=== PATIENT | female | born 1970 | race Caucasian/White ===

== ENCOUNTER 2024-08-29 17:56 | Emergency (ER) | payer OTHER, SELFPAY ==
[2024-08-29 17:57] VITALS: BP 154/86
[2024-08-29 18:26] LABS: % Basophils 0.6 % (0-2); % Eosinophils 2.2 % (0-6); % Immature Granulocytes 0.3 % (0-0.5); % Lymphocytes 21.8 % (20.5-51.1); % Monocytes 6.1 % (1.7-9.3); Absolute Eosinophils 0.1 10^3/uL (0-0.7); Absolute Lymphocytes 1.4 10^3/uL (1.2-3.4); Absolute Monocytes 0.4 10^3/uL (0.1-0.6); Absolute Neutrophils 4.4 10^3/uL (1.4-6.5); Hematocrit 38.6 % (37.0-47.0); Hemoglobin 13.6 g/dL (12.0-16.0); Mean Corp Hgb Conc. 35.2 g/dL (33.0-37.0); Mean Corpuscular Hgb 32.9 pg (27.0-31.0); Mean Corpuscular Volume 93.5 fL (81.0-99.0); Mean Platelet Volume 9.6 fL (7.4-10.4); Nucleated Red Blood Cells % 0 %; Platelet Count 251 10^3/uL (130-400); Red Blood Cell Count 4.13 10^6/uL (4.20-5.40); Red Cell Dist. Width 12.4 % (11.5-14.5); White Blood Cell Count 6.4 10^3/uL (4.8-10.8)
[2024-08-29 18:35] LABS: HCG, Serum Qualitative Screen Negative
[2024-08-29 18:41] LABS: ALT (SGPT) 32 U/L (0-35); AST (SGOT) 29 U/L (14-36); Albumin 4.4 g/dl (3.5-5.0); Alkaline Phosphatase 67 U/L (38-126); Blood Urea Nitrogen 18 mg/dl (7-17); Calcium 10.2 mg/dl (8.4-10.2); Carbon Dioxide 23 mmol/L (22-30); Chloride 104 mmol/L (98-107); Glucose 105 mg/dl (70-99); Potassium 4.5 mmol/L (3.5-5.1); Sodium 136 mmol/L (135-145); Total Bilirubin 0.7 mg/dl (0.2-1.3); Total Protein 6.9 g/dl (6.3-8.2); eGFR > 60.00
--- NOTE | 2024-08-29 20:33 | ED.GENMED ---
History of Present Illness
General
Chief Complaint: Headache
Source: patient
Exam Limitations: none
Time Seen by Provider: 08/29/24 20:33
Nursing documentation reviewed up to this point in time: agreed with
History of Present Illness
History of Present Illness:
54-year-old female past medical history migraines presents to the ER for evaluation. She reports since around 1130 am this morning she has been dealing with her typical migraine. She reports this started with flashing lights which is similar to
how her migraines typically start. She took since then 2 doses of Zomig along with Benadryl and Excedrin Migraine without relief. She does complain of photophobia. She reports this is the same as her normal migraine symptoms but symptoms are not
resolving. She denies any recent fever chills.
She does complain of some soreness to her upper trapezius area from [place] but no actual injury. denies neck pain. She has needed to come to the ER once several years ago here for similar symptoms.
She is followed by neurology Dr. Amador.
Past History
Past History
ED Past Medical History: Other
ED Past Surgical History: Other (Tonsillectomy and, right ACL repair. Breast Augmentation)
Social History
Tobacco: Non-smoker
Alcohol: None
Drug: None
Personal:
Living: with family
Employment: Employed
Family History
Family History: Other
Review of Systems
Review of Systems
Allergies reviewed?: Yes
All Other Systems: ROS reviewed and negative except as documented in HPI and ROS
Constitutional: Reports no symptoms
Cardiac: Reports no symptoms
ABD/GI: Reports no symptoms
: Reports no symptoms
Musculoskeletal: Reports no symptoms
Skin: Reports no symptoms
Neurological: Reports headache; Denies dizzy, weakness or numbness
Psychiatric: Reports no symptoms
Phy Exam
General Physical Exam
General Presentation: no apparent distress
General age: appears stated age
General Skin: warm and dry
General Habitus: normal
General Mental: alert
General Hydration: appears well hydrated
Eye Exam
Eye Exam: PERRL and EOMI
Eye Exam General: PERRL: bilateral and EOM intact: bilateral
Pupil Exam: Bilateral: round and reactive
Neurological Exam
Neurological Exam: alert, oriented x3, no motor deficits and no sensory deficits
[place]oney Coma Scale
Eye Opening: Spontaneous
Verbal Response: Oriented
Motor Response: Obeys Commands
GCS Total Score: 15
Cerebellar
Cerebellar Function: normal finger to nose
Musculoskeletal Exam
Musculoskeletal Exam: full ROM
Skin Exam
Skin Exam: normal color and warm/dry
Psychiatric Exam
Psychiatric Exam: normal mood/affect
Course
Orders/Labs/Results
Orders:
Orders
08/29/24 18:00
Test Result ONCE
08/29/24 18:07
Complete Blood Count/With Diff Urgent
Comprehensive Metabolic Panel Urgent
HCG, Serum Qualitative Screen Urgent
08/29/24 20:48
Diphenhydramine [Benadryl] 25 mg IV NOW STA
Metoclopramide [Reglan] 10 mg IV NOW STA
08/29/24 20:51
0.9% Sodium Chloride 1000 ml [Nss] 1,000 ml IV BOLUS
Dexamethasone Sod Phosphate [Decadron] 10 mg IV NOW STA
Abnormal Lab Results
08/29/24
18:07
RBC 4.13 L 10^6/uL
(4.20-5.40)
MCH 32.9 H pg
(27.0-31.0)
BUN 18 H mg/dl
(7-17)
Glucose 105 H mg/dl
(70-99)
08/29/24 18:07
08/29/24 18:07
Vital Signs
Initial and Last Documented VS:
Initial Vital Signs
Temp Pulse Resp BP Pulse Ox
98.3 F 71 18 154/86 100
08/29/24 17:57 08/29/24 17:57 08/29/24 17:57 08/29/24 17:57 08/29/24 17:57
Last Documented Vital Signs
Temp Pulse Resp BP Pulse Ox
98.3 F 71 18 154/86 100
08/29/24 17:57 08/29/24 17:57 08/29/24 17:57 08/29/24 17:57 08/29/24 17:57
MDM/Problems Addressed
Differential Diagnosis Includes:
Not limited to migraine
MDM/Problems Addressed:
Patient is a 54-year-old with migraines presented with her typical migraine headache unrelieved with her Zomig and Excedrin migraine at home. Patient presents awake alert no acute distress normal neurological exam she is followed by neurology.
This is consistent with her typical migraine she denies any actual injury no neck pain. Patient has a normal neurologic exam. Patient was given fluids Reglan Benadryl and Decadron feeling much better feels hungry and wishes to go home. Discussed
close outpatient follow-up with neurology and PCP
Chronic conditions affecting care:
Migraine headaches
*Pulse Oximetry
Patient hypoxic: no
*Critical Care Note
Total Time (30-74mins, 75-104mins- exclusive of procedures): Not Applicable
Data Reviewed
Review of Other/Old Records Reveals: Other (Previous ED chart and imaging)
Source: patient
ED Attending Note
-
Portions of this chart may have been created with voice recognition software.� Occasional wrong word or��sound alike� substitutions may have occurred due to the inherent limitations of voice recognition software.
Discharge Plan
Departure
Patient Disposition: Home (Routine Discharge)
Date of Disposition: 08/29/24
Time of Disposition: 23:04
Patient with high blood pressure during this ER visit?: Yes
Condition: Fair
Covid-19: Not Applicable
Discharge Problem:
Migraine
Instructions: Migraines (DC), BLOOD PRESSURE
Prescriptions:
No Action
escitalopram oxalate 10 mg Tablet
15 mg PO HS
propranolol 80 mg Capsule,Extended Release 24hr
80 mg PO DAILY
omeprazole 20 mg Tablet,Delayed Release (Dr/Ec)
20 mg PO DAILY
Lo Loestrin Fe 1 mg-10 mcg (24)/10 mcg (2) Tablet
1 tab PO DAILY
Myrbetriq 50 mg Tablet Extended Release 24 Hr
50 mg PO DAILY
Referrals:
Josh Villa MD [Family Provider] -
Activity Restrictions/Additional Instructions:
As discussed please follow-up with your family doctor and neurologist for further evaluation of your headaches. Return if any worsening of symptoms
Interventions
Interventions:
*Risk Screen - Suicide Last Done: 08/29/24 17:57
*General Assessment Last Done: 08/29/24 17:57
*Neglect/Abuse Screening Last Done: 08/29/24 17:57
Discharge Date and Time
Print Language: BULGARIAN
[2024-08-29] MEDS: BENADRYL 25 MG IV (21:13)
[2024-08-29] MEDS: REGLAN 10 MG IV (21:15)
[2024-08-29] MEDS: DECADRON 10 MG IV (21:18)
[2024-08-29] MEDS: NSS 1000 IV (21:19)
[2024-08-29 23:27] VITALS: BP 115/76
== END 2024-08-29 23:32 | disposition home or self-care (01) ==
LOC: EMR 17:56
PROVIDERS: Emergency Medicine; EMERGENCY PHYSICIAN Emergency Medicine; FAMILY PHYSICIAN Family Medicine
DX: G43.909 Migraine, unspecified, not intractable, without status migrainosus (principal); R03.0 Elevated blood-pressure reading, without diagnosis of hypertension
CPT/HCPCS: 99284; 96374; 96375 ×2; 96361; 80053; 84703; 85025

== ENCOUNTER 2024-09-01 02:32 | Inpatient (IN) | payer OTHER, SELFPAY ==
[2024-08-31 22:51] VITALS: BP 120/75
[2024-09-01] VITALS (15 sets, daily range): BP systolic 117–137; BP diastolic 65–88; PULSE 74; O2SAT 98
--- NOTE | 2024-09-01 00:19 | ED.GENMED ---
History of Present Illness
General
Chief Complaint: Headache
Source: patient and previous hospital records (ED visit for similar complaint 2 days ago)
Exam Limitations: none
Time Seen by Provider: 09/01/24 00:09
Nursing documentation reviewed up to this point in time: agreed with
History of Present Illness
History of Present Illness:
This is a 54-year-old woman with history of migraine headaches, follows with Dr. Amador. Headaches are generally well-controlled with as needed Zomig, Excedrin Migraine. She reports having her typical migraine 1 month ago and prior to that was 3
to 4 months previously. Beginning 2 days ago however she developed her typical migraine with initially flashing lights in her eyes then generalized headache. No relief with Zomig, Excedrin Migraine, Advil. She presented to this ED on Tuesday,
August 29 and reports moderate improvement in headache after an IV dose of Reglan, Benadryl, IV fluids. Headache worsened the following day, August 30 and she placed a call to her neurologist and was placed on prednisone. She continues with headache
and is most concerned with continued vision difficulty which she describes as somewhat blurred vision, pixelated vision bilateral eyes that persists when she closes her eyes. She denies loss of vision. No nausea or vomiting, no neck pain, no fever
no chills.
Past History
Past History
ED Past Medical History: GERD and Other (Migraine headache)
ED Past Surgical History: Gynecological (Left breast lumpectomy 2007), Tonsilectomy and Other (Tonsillectomy and, right ACL repair. Breast Augmentation)
Social History
Tobacco: Non-smoker
Alcohol: None
Drug: None
Personal:
Living: with family
Employment: Employed
Family History
Family History: Other (Noncontributory)
Phy Exam
Physical Exam
Physical Exam:
GENERAL: 54-year-old woman appears her stated age, awake and alert, pleasant, appears in no acute distress. is accompanying.
EYE: pupils equal and reactive. Extraocular muscles intact. Discs are sharp bilaterally. Anicteric
NECK: Supple, nontender, no meningismus, no significant adenopathy.
ENT: posterior pharynx is clear, oral mucosa is moist. No rhinorrhea.
CARDIAC: Regular rate and rhythm. no murmur.
LUNGS: Clear breath sounds bilaterally, no acute respiratory distress, no wheezes/rales/rhonchi
ABDOMEN: Soft, nondistended, without focal tenderness, no r/g, no cvat. normoactive BS.
NEUROLOGICAL: Alert and oriented x3, no focal neuro deficits. Gait is nina and steady.
SKIN: Warm and dry, normal color, skin intact. No rash.
MUSCULOSKELETAL: No C/C/E. peripheral pulses are full and equal b/l. No palpable tenderness.
PSYCH: Normal and appropriate interaction.
Course
Orders/Labs/Results
Orders:
Orders
09/01/24 00:18
CT Head W/o Iv Contrast Urgent
Comment:
Reason For Exam: migraine x 2 days, b/l blurred vision
0.9% Sodium Chloride 1000 ml [Nss] 1,000 ml IV BOLUS
Diphenhydramine [Benadryl] 25 mg IV NOW STA
Ketorolac [Toradol] 30 mg IV NOW STA
Prochlorperazine [Compazine] 10 mg IV NOW STA
09/01/24 01:26
Electrocardiogram (*1) Urgent
Reason for Study: TIA/Stroke
EKG- Treatment ONCE
Vital Signs
Initial and Last Documented VS:
Initial Vital Signs
Temp Pulse Resp BP Pulse Ox
98.2 F 78 14 120/75 97
08/31/24 22:51 08/31/24 22:51 08/31/24 22:51 08/31/24 22:51 08/31/24 22:51
Last Documented Vital Signs
Temp Pulse Resp BP Pulse Ox
98.2 F 77 17 131/85 98
08/31/24 22:51 09/01/24 01:35 09/01/24 01:35 09/01/24 00:01 09/01/24 01:35
MDM/Problems Addressed
Differential Diagnosis Includes:
Patient presents with persistent migraine headache since August 29.
Prodrome of visual flashing lights is common with her headaches but has had persistent visual changes, somewhat pixelated vision bilaterally since onset of headache. As such we will check CT of the head.
Overall exam is benign. Discs are sharp bilaterally.
Given IV dose of Compazine, Benadryl, Toradol and IV fluids.
Unremarkable laboratory studies 2 days ago. No indication to repeat.
Chronic conditions affecting care: Neurological disorder (Migraine headache)
*Radiology
Radiology exam reviewed: radiology read reviewed (CAT scan shows small infarct in the left occipital and parietal lobes, left cerebellum and left basal ganglia. New from previous CT 3 years ago. Concerning for acute versus subacute infarcts. No
evidence of intracranial hemorrhage.)
*Pulse Oximetry
Patient hypoxic: no
*EKG
Interpreted by ED Provider?: Yes
Interpretation: normal
Comparison EKG: no changes (Unchanged from previous March 2023)
Rate: normal
Rhythm: sinus
[place]: normal axis
Interval: normal interval
QRS Pattern: normal QRS
Ischemia: no ischemia
*Assembling [employer] Interpretation
Rate: normal
Interpretation: normal
Rhythm: sinus
*Critical Care Note
Total Time (30-74mins, 75-104mins- exclusive of procedures): Not Applicable
Update Note
Update Note:
01:20
CAT scan shows several subacute/acute small infarcts in left occipital and parietal lobes, left cerebellum, left basal ganglia. All concerning for acute/subacute infarcts. No intracranial hemorrhage.
Patient resting comfortably, headache has resolved.
She continues with some vision difficulties but improved. No other focal neurodeficits and NIH stroke scale of 0.
Will admit to hospitalist service.
ED Attending Note
-
Portions of this chart may have been created with voice recognition software.� Occasional wrong word or��sound alike� substitutions may have occurred due to the inherent limitations of voice recognition software.
Discharge Plan
Departure
Patient Disposition: Admit
Date of Disposition: 09/01/24
Time of Disposition: 01:23
Admit to: Med/Surg
Admit to doctor: Sid
Presentation/result/management discussed w/ accepting MD/DO: Hospitalist
Condition: Fair
Discharge Problem:
acute/subacute cerebral infarcts
Prescriptions:
No Action
escitalopram oxalate 10 mg Tablet
15 mg PO HS
propranolol 80 mg Capsule,Extended Release 24hr
80 mg PO DAILY
omeprazole 20 mg Tablet,Delayed Release (Dr/Ec)
20 mg PO DAILY
Lo Loestrin Fe 1 mg-10 mcg (24)/10 mcg (2) Tablet
1 tab PO DAILY
vitamin E
1 tab PO DAILY
Referrals:
Jennifer Pires MD [Family Provider] -
Interventions
Interventions:
*Risk Screen - Suicide Last Done: 08/31/24 22:51
*General Assessment Last Done: 08/31/24 22:51
*Neglect/Abuse Screening Last Done: 08/31/24 22:51
*ED- Fall Risk Assessment Last Done: 09/01/24 00:03
*ED COVID-19 Vaccine History Last Done: 09/01/24 00:03
ED- Neurological Assessment Last Done: 09/01/24 00:03
Discharge Date and Time
Print Language: SAO TOMEAN
[2024-09-01] MEDS: TORADOL 30 MG IV (00:26)
[2024-09-01] MEDS: BENADRYL 25 MG IV (00:26)
[2024-09-01] MEDS: NSS 1000 IV (00:26)
[2024-09-01] MEDS: COMPAZINE 10 MG IV (00:27)
--- NOTE | 2024-09-01 02:24 | HPS.HSE ---
Family Physician
-
Family Physician: Jennifer Pires
Chief Complaint
-
Headache, Vision Changes
History of Present Illness
Patient is a 54y F with PMH significant for migraine headaches who presents to ED complaining of headache and vision changes. Patient notes having her typical migraine for the past several days. She was seen in the ED here on 08/29 with
complaints of headache and typical prodrome of 'light flashes' which are consistent with her usual migraine. She was treated with migraine cocktail at that time and discharged to home. She spoke with her Neurologist the following day (Dr. Dixon)
and was started on prednisone taper (currently 30mg daily).
Patient notes that her headache has continued without much improvement. In addition, she has noted odd visual changes which are not consistent with her usual migraine symptoms.
She describes this as missing 'pieces' in her vision. These missing areas do not seem to be consistently in a specific visual field and seem to move about.
Patient denies any numbness, weakness or ataxia in the limbs. No speech abnormality.
In the ED, her headache has improved following migraine cocktail; however, her vision changes persist.
Patient denies any prior h/o [place], CVA, etc.
Medical History
Past Medical History
Past Medical History: Reports Other
Additional Past Medical History:
Migraine Headaches
Diverticular Disease
Past Surgical History: Reports Other
Additional Past Surgical History:
Right ACL Repair
T&A
Partial Colectomy (diverticulitis)
Bunionectomy
Social History
Tobacco: Former Smoker (Quit smoking in 1994. < 10 pack years total use.)
Alcohol: Occasional
Family History
Family History: Not pertinent
Allergies / Home Medications
Allergies reflects when Allergies were last updated in [employer].
Home Medications with original date entered in [employer]
Allergy/Medication List:
Allergies
Allergy/AdvReac Type Severity Reaction Status Date / Time
fish derived Allergy Anaphylaxis Verified 09/01/24 01:42
guaifenesin [Guaifenesin] Allergy Hives Verified 09/01/24 01:42
grouper fish Allergy Anaphylaxis Uncoded 09/01/24 01:42
trivia and stevia sweetners Allergy Hives Uncoded 09/01/24 01:42
Home Medications
escitalopram oxalate 10 mg tablet 15 mg PO HS 03/23/23
norethindrone 1 mg-ethinyl estradiol 10 mcg (24)-iron 10 mcg(2) tablet (Lo Loestrin Fe) 1 tab PO DAILY 03/23/23
omeprazole 20 mg tablet,delayed release 20 mg PO DAILY 03/23/23
propranolol 80 mg capsule,extended release 24 hr 80 mg PO DAILY 03/23/23
vitamin E 1 tab PO DAILY 09/01/24
Review of Systems
-
History Source: Patient
A 12 point ROS was completed and negative except as noted: Yes
Constitutional: Denies Fever or Chills
Respiratory: Denies Cough or Trouble Breathing
Cardiac: Denies Chest Pain or Palpitations
Abdomen/GI: Denies Abdominal Pain, Nausea, Vomiting or Diarrhea
: Denies Dysuria or Frequency
Musculoskeletal: Denies Joint Pain or Edema
Neurological: Reports Headache and Other (Vision changes); Denies Dizzy
Psych: Denies Depression or Anxiety
Physical Exam
Vital Signs
Vital Signs
Temp Pulse Resp BP Pulse Ox
98.2 F 77 16 131/85 97
08/31/24 22:51 09/01/24 02:00 09/01/24 02:00 09/01/24 00:01 09/01/24 01:45
Physical Exam
General: Other (54y F in no acute distress.)
HEENT: Moist mucous membranes and PERRLA
Respiratory: Clear; No Wheezes, Rales or Rhonchi
Cardiac: S1/S2 and Regular Rhythm; No Murmur
GI: Soft, Non Tender, Non Distended and Normal Bowel Sounds
Musculoskeletal: No Clubbing, No Cyanosis and No Edema
Neuro: AO x 3 and No Motor Deficits
Impression/Plan
-
A/P: Patient is a 54y F with PMH significant for migraines who presents to ED complaining of headache and vision changes.
CVA
Visual Changes
Migraine Headache
- Admit for further evaluation and treatment.
- Typical migraine - but with atypical vision component / changes.
- CT done in the ED today shows several areas of small infarct in the left occipital, parietal, basal ganglia and cerebellum.
- No motor deficits, no ataxia / abnormal cerebellar signs.
- Patient without significant risk factors, known heart disease, hypertension, etc.
- DAPT for now.
- MRI in AM for further evaluation.
- Neurology consult for additional recommendations.
- Follow neuro exam for any new / worsening symptoms.
- Monitor for recurrent headache and treat supportively if needed.
Labs reviewed from 08/29/24 ED visit. All of which were unremarkable.
DVT Prophylaxis: SCDs
Code Status: Full
[2024-09-01] MEDS: LOW STRENGTH ASPIRIN 324 MG PO (02:29)
[2024-09-01 06:10] LABS: Hematocrit 30.6 % (37.0-47.0); Hemoglobin 10.6 g/dL (12.0-16.0); Mean Corp Hgb Conc. 34.6 g/dL (33.0-37.0); Mean Corpuscular Hgb 32.7 pg (27.0-31.0); Mean Corpuscular Volume 94.4 fL (81.0-99.0); Mean Platelet Volume 9.3 fL (7.4-10.4); Platelet Count 183 10^3/uL (130-400); Red Blood Cell Count 3.24 10^6/uL (4.20-5.40); Red Cell Dist. Width 12.8 % (11.5-14.5)
[2024-09-01 06:33] LABS: Erythrocyte Sed Rate 10 mm/hour (0-20)
[2024-09-01 06:56] LABS: Blood Urea Nitrogen 16 mg/dl (7-17); Calcium 8.8 mg/dl (8.4-10.2); Carbon Dioxide 23 mmol/L (22-30); Chloride 111 mmol/L (98-107); Glucose 99 mg/dl (70-99); HDL Cholesterol 60 mg/dl; LDL Cholesterol, Calculated 73 mg/dl; Sodium 138 mmol/L (135-145); Total Cholesterol 151 mg/dl (50-199); Triglyceride 91 mg/dl (10-149); Very Low Density Lipoprotein 18 mg/dl (0-30); eGFR > 60.00
[2024-09-01 07:23] LABS: TSH Reflex To Free T4 1.04 uIU/ml (0.47-4.68)
[2024-09-01] MEDS: PROTONIX 40 MG PO (07:56)
[2024-09-01] MEDS: PLAVIX 75 MG PO (07:56)
[2024-09-01] MEDS: INDERAL LA 80 MG PO (07:56)
--- NOTE | 2024-09-01 08:29 | CON.NEURO ---
Consultation
Order
Date of Consultation: 09/01/24
Requesting Provider: Derek Lau DO
Reason for Consult: CVA
Neurology Consultation Note.
HPI: This is a 54-year-old RH woman who presented to [facility] on August 31, 2024 with headache. According to the patient reports developing gradual in onset constant holocephalic moderate throbbing headache that started on
08/29/2024. The headache is associated with nausea, photophobia and worse with recumbency.
Ms. Trevino woke up with persistent visual difficulties, describing it as 'very difficult to see all at once.' She also experienced balance issues, reporting walking into the side of a door on the left side during the night.
The patient rates the pain as initially 9-10/10 on Tuesday night, improving slightly to 6-7/10 on and Tuesday with ibuprofen, Excedrin migraine and Zomig.
Ms. Krause took prescribed prednisone on and Tuesday with minimal improvement leading her to seek medical attention
Sheila denies fever, nasal congestion, ear pain, tinnitus, double vision, or tingling/numbness in her hands associated with this headache.
ER VS: 120/75, 78, afebrile
EKG:NSR, QTc Int : 402 ms
PDMP:none
Labs: Hemoglobin�10.6, normal glucose, LDL, TSH, WBCs, sodium, creatinine.
CT head wo contrast-multiple new hypoattenuating foci described above, which could represent acute or subacute ischemia. An alternative consideration would be vasogenic edema from underlying intraparenchymal lesions.
PMH: Migraine with aura, HTN, OLIVER, GERD, diverticulosis
PSH: Bunionectomy and 1st metatarsal phalangeal joint release, left foot. Lapiplasty tarsal-metatarsal joint arthrodesis with plate and screw fixation, left foot, partial colectomy, right ACL repair, tonsillectomy
SH: , former smoker, works as a medical billing representative
FH: Father�pneumonia, coronary artery disease.
All: Guaifenesin
ROS: Constitutional: Negative. Negative for chills, fever and unexpected weight change.
HENT: Negative for ear pain, hearing loss, tinnitus and trouble swallowing.
Eyes: Negative. Negative for photophobia, pain and visual disturbance.
Respiratory: Negative for cough, choking and shortness of breath.
Cardiovascular: Negative for chest pain, palpitations and leg swelling.
Gastrointestinal: Negative for abdominal pain and vomiting.
Endocrine: Negative. Negative for cold intolerance.
Genitourinary: Negative for dysuria, flank pain and urgency.
Musculoskeletal: Negative for back pain, gait problem, neck pain and neck stiffness.
Skin: Negative for rash.
Allergic/Immunologic: Negative. Negative for immunocompromised state.
Neurological: Positive for headache, transient visual disturbance
General: Well developed. In no acute distress.
Cardio: Regular rate and rhythm without murmur. Extremities are without cyanosis or edema.
Neuro:
Mental Status: Alert, oriented to person, place, and date. Normal attention and recall. Good fund of knowledge. Follows complex requests across the midline. Comprehension, naming, and repetition intact. No agraphia or alexia.
Cranial Nerves: Pupils are equally round and reactive to light. EOMs full. Visual araujo full to confrontation. No ptosis. No nystagmus. V1-V3 intact to light touch and pinprick bilaterally, symmetric. Face symmetric. Normal hearing AU. The
palate elevated well. SCMs and traps 5/5. Tongue midline. No dysarthria.
Motor: Normal bulk and tone. No pronator or arm drift. Strength 5/5 throughout. No clonus.
Reflexes: 2+ throughout the upper extremities and knees. 2/2 in AJs. Plantar responses flexor bilaterally.
Sensory: Normal pinprick, vibration and JPS.
Coordination: No dysmetria or tremor.
Gait: deferred
Assessment and Plan:
I. Probably secondary headache
II. History of migraine with aura
III. Abnormal CT head
- Please obtain brain MRI with and without oliver
- IV Toradol 30 mg, Reglan 10 mg, Benadryl 25 mg Q8h PRN for moderate to severe headache.
- Please check magnesium, ESR, CRP, TSH
- Case was discussed with patient's
I personally reviewed all radiology and labs along with past medical records pertinent to current medical problems. Total time spent in patient care is 60 minutes.
Thank you for allowing us to participate in the care of this patient. We will continue to follow. Please do not hesitate to contact us with any questions or concerns.
Subjective/Objective
Subjective Data
Date of Service: September 01, 2024
Objective Data
Vital Signs
Temp Pulse Resp BP Pulse Ox
36.8 C 74 18 135/87 99
09/01/24 07:26 09/01/24 07:56 09/01/24 07:26 09/01/24 07:56 09/01/24 07:26
Lab Results
09/01/24 05:45
09/01/24 05:45
Sodium 138 mmol/L (135-145) 09/01/24 05:45
Potassium 4.0 mmol/L (3.5-5.1) 09/01/24 05:45
BUN 16 mg/dl (7-17) 09/01/24 05:45
Glucose 99 mg/dl (70-99) 09/01/24 05:45
Calcium 8.8 mg/dl (8.4-10.2) 09/01/24 05:45
LDL Cholesterol, Calc 73 mg/dl 09/01/24 05:45
Patient Allergies
fish derived Allergy (Verified 09/01/24 01:42)
Anaphylaxis
guaifenesin [Guaifenesin] Allergy (Verified 09/01/24 01:42)
Hives
grouper fish Allergy (Uncoded 09/01/24 01:42)
Anaphylaxis
trivia and stevia sweetners Allergy (Uncoded 09/01/24 01:42)
Hives
Medications
-
Active Medications
Generic Name Dose Route Start Last Admin
Trade Name Freq PRN Reason Stop Dose Admin
Acetaminophen 650 mg 09/01/24 03:26
Acetaminophen 325 Mg Tablet PO 09/29/24 03:25
Q4HPRN PRN
Mild Pain / Temp > 101
Aspirin 81 mg 09/02/24 08:00
Aspirin 81 Mg Chewable Tablet PO 09/30/24 07:59
DAILY ALEJANDRO
Clopidogrel Bisulfate 75 mg 09/01/24 08:00 09/01/24 07:56
Clopidogrel 75 Mg Tablet PO 09/29/24 07:59 75 mg
DAILY ALEJANDRO Administration
Escitalopram Oxalate 15 mg 09/01/24 22:00
Escitalopram 10 Mg Tablet PO 09/29/24 21:59
HS ALEJANDRO
Ketorolac Tromethamine 10 mg 09/01/24 03:26
Ketorolac 15 Mg/Ml Injection IV 09/06/24 03:25
Q6HPRN PRN
Headache
Pantoprazole Sodium 40 mg 09/01/24 08:00 09/01/24 07:56
Pantoprazole 40 Mg Delayed Release Tablet PO 09/29/24 07:59 40 mg
DAILY ALEJANDRO Administration
Prochlorperazine Edisylate 10 mg 09/01/24 03:26
Prochlorperazine 10 Mg/2 Ml Vial IV 09/29/24 03:25
Q6HPRN PRN
Headache / Nausea
Propranolol HCl 80 mg 09/01/24 08:00 09/01/24 07:56
Propranolol Extended Release 80 Mg Capsule (24hr) PO 09/29/24 07:59 80 mg
DAILY ALEJANDRO Administration
Sodium Chloride 0 flush 09/01/24 04:00
Sodium Chloride 0.9% (Flush) Syringe IV 09/29/24 03:59
PER PROTOCOL ALEJANDRO
Home Medications
�Medication �Instructions �Recorded
escitalopram oxalate 10 mg tablet 15 mg PO HS 03/23/23
norethindrone 1 mg-ethinyl 1 tab PO DAILY 03/23/23
estradiol 10 mcg (24)-iron 10
mcg(2) tablet (Lo Loestrin Fe)
omeprazole 20 mg tablet,delayed 20 mg PO DAILY 03/23/23
release
propranolol 80 mg capsule,extended 80 mg PO DAILY 03/23/23
release 24 hr
vitamin E 1 tab PO DAILY 09/01/24
Vital Signs and Labs
-
Vital Signs and Labs:
Vital Signs
Temp Pulse Resp BP Pulse Ox
36.8 C 74 18 135/87 99
09/01/24 07:26 09/01/24 07:56 09/01/24 07:26 09/01/24 07:56 09/01/24 07:26
Lab Results
09/01/24 05:45
09/01/24 05:45
Sodium 138 mmol/L (135-145) 09/01/24 05:45
Potassium 4.0 mmol/L (3.5-5.1) 09/01/24 05:45
BUN 16 mg/dl (7-17) 09/01/24 05:45
Glucose 99 mg/dl (70-99) 09/01/24 05:45
Calcium 8.8 mg/dl (8.4-10.2) 09/01/24 05:45
LDL Cholesterol, Calc 73 mg/dl 09/01/24 05:45
Medications
-
Medications:
Generic Name Dose Route Start Last Admin
Trade Name Freq PRN Reason Stop Dose Admin
Acetaminophen 650 mg 09/01/24 03:26
Acetaminophen 325 Mg Tablet PO 09/29/24 03:25
Q4HPRN PRN
Mild Pain / Temp > 101
Aspirin 81 mg 09/02/24 08:00
Aspirin 81 Mg Chewable Tablet PO 09/30/24 07:59
DAILY ALEJANDRO
Clopidogrel Bisulfate 75 mg 09/01/24 08:00 09/01/24 07:56
Clopidogrel 75 Mg Tablet PO 09/29/24 07:59 75 mg
DAILY ALEJANDRO Administration
Escitalopram Oxalate 15 mg 09/01/24 22:00
Escitalopram 10 Mg Tablet PO 09/29/24 21:59
HS ALEJANDRO
Ketorolac Tromethamine 10 mg 09/01/24 03:26
Ketorolac 15 Mg/Ml Injection IV 09/06/24 03:25
Q6HPRN PRN
Headache
Pantoprazole Sodium 40 mg 09/01/24 08:00 09/01/24 07:56
Pantoprazole 40 Mg Delayed Release Tablet PO 09/29/24 07:59 40 mg
DAILY ALEJANDRO Administration
Prochlorperazine Edisylate 10 mg 09/01/24 03:26
Prochlorperazine 10 Mg/2 Ml Vial IV 09/29/24 03:25
Q6HPRN PRN
Headache / Nausea
Propranolol HCl 80 mg 09/01/24 08:00 09/01/24 07:56
Propranolol Extended Release 80 Mg Capsule (24hr) PO 09/29/24 07:59 80 mg
DAILY ALEJANDRO Administration
Sodium Chloride 0 flush 09/01/24 04:00
Sodium Chloride 0.9% (Flush) Syringe IV 09/29/24 03:59
PER PROTOCOL ALEJANDRO
Home Medications
-
Home Medications
escitalopram oxalate 10 mg tablet 15 mg PO HS 03/23/23
norethindrone 1 mg-ethinyl estradiol 10 mcg (24)-iron 10 mcg(2) tablet (Lo Loestrin Fe) 1 tab PO DAILY 03/23/23
omeprazole 20 mg tablet,delayed release 20 mg PO DAILY 03/23/23
propranolol 80 mg capsule,extended release 24 hr 80 mg PO DAILY 03/23/23
vitamin E 1 tab PO DAILY 09/01/24
--- NOTE | 2024-09-01 08:31 | W.PN.HOSP.TC ---
Today's Communication/Plan
-
MRI today
Assessment / Plan
Assessment / Plan
Ms. Sheila Trevino is a 54 yo woman with hx migraines who presents to the ER complaining of headache and vision changes.
HEAD CT
IMPRESSION:
Multiple new hypoattenuating foci described above, which could represent acute or subacute ischemia. An alternative consideration would be vasogenic edema from underlying intraparenchymal lesions. A follow-up brain MRI without and with intravenous
contrast may be helpful for further characterization.
CVA
Visual Changes
Migraine Headache
- Admit for further evaluation and treatment.
- Typical migraine - but with atypical vision component / changes.
- CT done in the ED today shows several areas of small infarct in the left occipital, parietal, basal ganglia and cerebellum.
- No motor deficits, no ataxia / abnormal cerebellar signs.
- Patient without significant risk factors, known heart disease, hypertension, etc.
- DAPT for now.
- MRI in AM for further evaluation.
- Neurology consult for additional recommendations.
- Follow neuro exam for any new / worsening symptoms.
- Monitor for recurrent headache and treat supportively if needed.
Labs reviewed from 08/29/24 ED visit. All of which were unremarkable.
DVT Prophylaxis: SCDs
Code Status: Full
Anticipated Discharge: 24 - 48 hours
Subjective/Interval History
-
Date of Service: September 01, 2024
pain resolved but vision abnormality persists
Objective Data
-
Labs:
Laboratory Results
09/01/24
05:45
WBC 6.0
Hgb 10.6 L D
Hct 30.6 L
Plt Count 183 D
Sodium 138
Potassium 4.0
Chloride 111 H
Carbon Dioxide 23
BUN 16
Creatinine 0.6
Glucose 99
Calcium 8.8
Vital Signs:
Vital Signs
Temp Pulse Resp BP Pulse Ox
98.3 F 74 18 135/87 99
09/01/24 07:26 09/01/24 07:56 09/01/24 07:26 09/01/24 07:56 09/01/24 07:26
Review of Systems
-
History Source: Patient
All other systems: Reviewed and negative
Physical Exam
-
General: No Apparent Distress
HEENT: PERRLA
Respiratory: Clear to Auscultation; Negative Wheezes
Cardiac: Regular Rhythm and S1/S2
GI: Soft and Nontender
Musculoskeletal: No Edema
Skin: Warm and Dry; Negative Rash
Neuro: AO x 3
Psych: Calm
Data Reviewed
-
Diagnostic Radiology: Report Reviewed by me
Labs: Labs Reviewed by me
[2024-09-01 09:03] LABS: Glycohemoglobin (HgbA1c) 4.9 % (4.0-5.6)
[2024-09-01 09:11] LABS: Magnesium 1.9 mg/dl (1.6-2.3)
[2024-09-01 14:26] LABS: Amphetamines Negative (Negative); Barbiturates Negative (Negative); Benzodiazepines Negative (Negative); Buprenorphine Negative (Negative); Cocaine Negative (Negative); Marijuana Negative (Negative); Methadone Negative (Negative); Methamphetamines Negative (Negative); Opiates Negative (Negative); Phencyclidine Negative (Negative); Tricyclic Antidepressants Negative (Negative)
--- NOTE | 2024-09-01 15:00 | PTOTSP ---
Speech Therapy Evaluation:
Completed bedside swallow evaluation - Oral phase WFL with adequate acceptance, mastication, bolus formation, oral transfers, and clearance. No overt s/sx of aspiration or signs concerning for pharyngeal dysphagia. WBC WNL. Pt on room air. Pt passed
3oz swallow screen.
Speech/Language/Cognition appears WFL upon clinical observation, however not formally assessed.
Recommend:
1. Regular solids and thin liquids
2. Medications as tolerated
3. General aspiration precautions
4. WINE MAKER to s/o - please reconsult if indicated
[2024-09-01 18:05] LABS: HIV Combo Negative (Negative)
[2024-09-01] MEDS: LEXAPRO 15 MG PO (21:11)
[2024-09-02] VITALS (8 sets, daily range): BP systolic 109–153; BP diastolic 66–99; BMI 21.8
[2024-09-02] MEDS: TORADOL 10 MG IV ×2 (05:38→16:31)
[2024-09-02 05:43] LABS: Hematocrit 32.7 % (37.0-47.0); Hemoglobin 11.7 g/dL (12.0-16.0); Mean Corp Hgb Conc. 35.8 g/dL (33.0-37.0); Mean Corpuscular Hgb 33.4 pg (27.0-31.0); Mean Corpuscular Volume 93.4 fL (81.0-99.0); Mean Platelet Volume 9.5 fL (7.4-10.4); Platelet Count 185 10^3/uL (130-400); Red Cell Dist. Width 12.6 % (11.5-14.5); White Blood Cell Count 5.5 10^3/uL (4.8-10.8)
--- NOTE | 2024-09-02 05:48 | PTCARENOTE ---
Pt reported a frontal headache,aching not migraine pain,10/23,Neuro eval unchanged,pt medicated with Toradol 10 mg iv,with some relief.VS stable SR sole stainer.Close observation ongoing.
[2024-09-02 06:06] LABS: Blood Urea Nitrogen 16 mg/dl (7-17); Calcium 9.5 mg/dl (8.4-10.2); Carbon Dioxide 27 mmol/L (22-30); Chloride 103 mmol/L (98-107); Glucose 96 mg/dl (70-99); Potassium 4.2 mmol/L (3.5-5.1); Sodium 138 mmol/L (135-145); eGFR > 60.00
[2024-09-02] MEDS: LOW STRENGTH ASPIRIN 81 MG PO (07:58)
[2024-09-02] MEDS: PROTONIX 40 MG PO (07:58)
[2024-09-02] MEDS: PLAVIX 75 MG PO (07:58)
[2024-09-02] MEDS: INDERAL LA 80 MG PO (07:58)
[2024-09-02] MEDS: TYLENOL 650 MG PO ×2 (08:15→20:28)
[2024-09-02] MEDS: COMPAZINE 10 MG IV ×2 (08:16→20:31)
--- NOTE | 2024-09-02 08:28 | W.PN.HOSP.TC ---
Addendum entered and electronically signed by Nelida Calderon MD 09/02/24 14:02:
discussed with patient stopped hormone replacement therapy
Addendum entered and electronically signed by Nelida Calderon MD 09/02/24 08:52:
*TSH WNL
Original Note:
Today's Communication/Plan
-
asa/plavix
TTE
NPO after MN for MAKAYLA/Linq
thyroid US
Assessment / Plan
Assessment / Plan
Ms. Sheila Trevino is a 54 yo woman with hx migraines who presents to the ER complaining of headache and vision changes.
HEAD CT
IMPRESSION:
Multiple new hypoattenuating foci described above, which could represent acute or subacute ischemia. An alternative consideration would be vasogenic edema from underlying intraparenchymal lesions. A follow-up brain MRI without and with intravenous
contrast may be helpful for further characterization.
Brain MRI
IMPRESSION:
Multiple scattered acute infarcts located in the bilateral parietal and occipital lobes, the left cerebellum, and the left thalamus.
CTA Head/Neck
IMPRESSION:
No acute intracranial hemorrhage.
The cervical carotid and vertebral arteries are patent without significant plaque, stenosis, occlusion, or dissection.
The left intradural vertebral artery is dominant. The right intradural vertebral artery demonstrates developmental diminished caliber beyond the posterior inferior cerebellar artery origin. Both posterior inferior cerebellar arteries appear patent.
No ak chin of Spivey region aneurysm or stenosis.
No cerebral artery significant plaque, stenosis, thrombus, or occlusion.
Thyroid nodularity, with right lobe enhancing heterogeneous nodule measuring up to 1.5 cm. Recommend nonemergent follow-up thyroid ultrasound.
CVA
Visual Changes
- CT done in the ED today shows several areas of small infarct in the left occipital, parietal, basal ganglia and cerebellum.
- s/p MRI confirming multiple scattered bilateral acute infarcts
- monitor on telemetry
- continue aspirin/plavix
- appreciate Neurology
- TTE with bubble study tomorrow; Cardiology consult for TTE and Linq; NPO after MN
Thyroid nodule on CT
-thyroid US ordered today
Labs reviewed from 08/29/24 ED visit. All of which were unremarkable.
DVT Prophylaxis: SCDs
Code Status: Full
Anticipated Discharge: 24 - 48 hours
Subjective/Interval History
-
Date of Service: September 02, 2024
headache this morning, improved with compazine
no weakness/numbness/tingling
Objective Data
-
Labs:
Laboratory Results
09/02/24
05:25
WBC 5.5
Hgb 11.7 L
Hct 32.7 L
Plt Count 185
Sodium 138
Potassium 4.2
Chloride 103
Carbon Dioxide 27
BUN 16
Creatinine 0.6
Glucose 96
Calcium 9.5
Vital Signs:
Vital Signs
Temp Pulse Resp BP Pulse Ox
98.4 F 71 17 129/73 98
09/02/24 07:46 09/02/24 07:58 09/02/24 07:46 09/02/24 07:58 09/02/24 07:46
I&O
09/01/24 09/02/24 09/03/24
06:59 06:59 06:59
Intake Total 480 / 480
Balance 480 / 480
Review of Systems
-
History Source: Patient
All other systems: Reviewed and negative
Physical Exam
-
General: No Apparent Distress
HEENT: PERRLA
Respiratory: Clear to Auscultation; Negative Wheezes
Cardiac: Regular Rhythm and S1/S2
GI: Soft and Nontender
Musculoskeletal: No Edema
Skin: Warm and Dry; Negative Rash
Neuro: AO x 3
Psych: Calm
Data Reviewed
-
Diagnostic Radiology: Report Reviewed by me
Labs: Labs Reviewed by me
--- NOTE | 2024-09-02 08:32 | CON.CAR ---
Consultation
Consultation Request
Date/Time Consultation Requested: September 02, 2024
Date/Time Consultation Performed: September 02, 2024
Requesting Provider: Hospitalist
Performing Provider: Christy
Reason for Consultation: Cryptogenic stroke
Medical History
-
Chief Complaint: Visual findings and headache
History of Present Illness:
54-year-old female who presents with acute onset visual changes and headache. She does carry history of chronic migraine and complicated migraine with visual aura. She is noted to have acute embolic infarcts on MRI of the brain although thankfully
she has noticed an improvement in her headache symptoms and overall neurologic picture except for difficulty with vision. No chest pain or palpitations. She does have a mother with a history of atrial fibrillation.
ECG demonstrates sinus rhythm and there is been no arrhythmia noted on telemetry.
Past Medical History
Past Medical History: HTN and Other (Chronic migraine)
Social History
Tobacco: Non-Smoker
Alcohol: None
Drug: None
Personal:
Living: With Family
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
Family History
Family History: Reviewed & Not Pertinent and Other (Mother with a history of atrial fibrillation)
Allergies / Home Medications
Allergy/AdvReac Type Severity Reaction Status Date / Time
fish derived Allergy Anaphylaxis Verified 09/01/24 01:42
guaifenesin [Guaifenesin] Allergy Hives Verified 09/01/24 01:42
grouper fish Allergy Anaphylaxis Uncoded 09/01/24 01:42
trivia and stevia sweetners Allergy Hives Uncoded 09/01/24 01:42
�Medication �Instructions �Recorded �Confirmed �Type
escitalopram oxalate 10 mg tablet 15 mg PO HS Mental Health/Anxiety 03/23/23 09/01/24 History
norethindrone 1 mg-ethinyl 1 tab PO DAILY HORMONE 03/23/23 09/01/24 History
estradiol 10 mcg (24)-iron 10
mcg(2) tablet (Lo Loestrin Fe)
omeprazole 20 mg tablet,delayed 20 mg PO DAILY GERD 03/23/23 09/01/24 History
release
propranolol 80 mg capsule,extended 80 mg PO DAILY Blood Pressure 03/23/23 09/01/24 History
release 24 hr
vitamin E 1 tab PO DAILY Supplement 09/01/24 09/01/24 History
Review of Systems
-
All other systems: Negative unless noted
Physical Exam
Vital Signs
Temp Pulse Resp BP Pulse Ox
98.4 F 71 17 129/73 98
09/02/24 07:46 09/02/24 07:58 09/02/24 07:46 09/02/24 07:58 09/02/24 07:46
Lab Results
09/02/24 05:25
09/02/24 05:25
Physical Exam
General: Well Developed and Well Nourished
HEENT: Normocephalic and Anicteric
Respiratory: Clear
Cardiac: S1/S2 and Regular Rhythm
Breast: Deferred by me
GI: Soft, Non Tender and Non Distended
Rectal: Deferred by Provider
Musculoskeletal: No Clubbing and No Cyanosis
Skin: Warm and Dry
Neuro: Awake, Alert and Oriented
Hematologic/Lymphatic: No Lymphadenopathy
Psych: Calm
Impression / Plan
-
Impression:
Cryptogenic stroke
Visual findings as noted
History of chronic migraine
Hypertension
History of anxiety disorder
History of GERD
Recommendations:
Agree with neurologic workup and treatment as you are.
It is likely she will need a formal neuro-ophthalmology evaluation if she has continued visual findings
Deferred neurology
Regarding her cryptogenic stroke and multiple embolic appearing infarcts as noted on MRI we would recommend a transesophageal echo and a ILR implant which I described both in detail and we will keep her n.p.o. after midnight and my colleagues can
perform this on Tuesday.
I took time to answer all questions we be happy to follow-up with her in the office
Data Reviewed
-
EKG: Tracing Personally Visualized and interpreted
Radiology: Report Reviewed by me
MRI: Report Reviewed by me
Labs: Labs Reviewed by me
Old Records: Requested
--- NOTE | 2024-09-02 10:30 | PTCARENOTE ---
Received pt from ED, VSS, monitor showing NSR. NIH '0' at present. Verbalizes relief of headache, previously medicated in ED. Vision remains 'fuzzy', denies field cut. Oriented to room, spouse at bedside, call buck in reach.
--- NOTE | 2024-09-02 14:11 | W.PN.NEURO.1 ---
Addendum entered and electronically signed by Anai Ramirez MD 09/04/24 07:39:
IV. Cytotoxic edema
Original Note:
Today's Communication / Plan
-
.
Subjective/Objective
Subjective Data
Date of Service: September 02, 2024
Neurology follow-up note
The patient reports no change in vision, strength and sensation.
She has been normotensive.
She MAKAYLA�pending
PMH: Migraine with aura, HTN, OLIVER, GERD, diverticulosis
PSH: Bunionectomy and 1st metatarsal phalangeal joint release, left foot. Lapiplasty tarsal-metatarsal joint arthrodesis with plate and screw fixation, left foot, partial colectomy, right ACL repair, tonsillectomy
SH: , former smoker, works as a in store marketing representative
FH: Father�pneumonia, coronary artery disease.
All: Guaifenesin
ROS: Constitutional: Negative. Negative for chills, fever and unexpected weight change.
HENT: Negative for ear pain, hearing loss, tinnitus and trouble swallowing.
Eyes: Negative. Negative for photophobia, pain and visual disturbance.
Respiratory: Negative for cough, choking and shortness of breath.
Cardiovascular: Negative for chest pain, palpitations and leg swelling.
Gastrointestinal: Negative for abdominal pain and vomiting.
Endocrine: Negative. Negative for cold intolerance.
Genitourinary: Negative for dysuria, flank pain and urgency.
Musculoskeletal: Negative for back pain, gait problem, neck pain and neck stiffness.
Skin: Negative for rash.
Allergic/Immunologic: Negative. Negative for immunocompromised state.
Neurological: Positive for headache, transient visual disturbance
General: Well developed. In no acute distress.
Cardio: Regular rate and rhythm without murmur. Extremities are without cyanosis or edema.
Neuro:
Mental Status: Alert, oriented to person, place, and date. Normal attention and recall. Good fund of knowledge. Follows complex requests across the midline. Comprehension, naming, and repetition intact.
Cranial Nerves: Pupils are equally round and reactive to light. EOMs full. Visual araujo full to confrontation. No ptosis. No nystagmus. V1-V3 intact to light touch and pinprick bilaterally, symmetric. Face symmetric. Normal hearing AU. The
palate elevated well. SCMs and traps 5/5. Tongue midline. No dysarthria.
Motor: Normal bulk and tone. No pronator or arm drift. Strength 5/5 throughout. No clonus.
Coordination: No dysmetria or tremor.
Gait: deferred
Assessment and Plan:
I. Acute hemispheric posterior circulation strokes. Likely etiology�embolic
II. History of migraine with aura
III. Abnormal CT head
-Continue neurochecks
-Continue DAPT
-MAKAYLA if TTE/ILR if TTE is unremarkable
-Outpatient ophthalmology consult
-Thrombophilia blood work
-Case was discussed with patient's
I personally reviewed all radiology and labs along with past medical records pertinent to current medical problems. Total time spent in patient care is 35 minutes.
Thank you for allowing us to participate in the care of this patient. We will continue to follow. Please do not hesitate to contact us with any questions or concerns.
Objective Data
Vital Signs
Temp Pulse Resp BP Pulse Ox
36.4 C 76 18 109/70 98
09/02/24 10:20 09/02/24 11:00 09/02/24 10:20 09/02/24 10:17 09/02/24 10:20
Lab Results
09/02/24 05:25
09/02/24 05:25
Sodium 138 mmol/L (135-145) 09/02/24 05:25
Potassium 4.2 mmol/L (3.5-5.1) 09/02/24 05:25
BUN 16 mg/dl (7-17) 09/02/24 05:25
Glucose 96 mg/dl (70-99) 09/02/24 05:25
Calcium 9.5 mg/dl (8.4-10.2) 09/02/24 05:25
LDL Cholesterol, Calc 73 mg/dl 09/01/24 05:45
Ur Buprenorphine Negative (Negative) 09/01/24 13:55
Patient Allergies
fish derived Allergy (Verified 09/01/24 01:42)
Anaphylaxis
guaifenesin [Guaifenesin] Allergy (Verified 09/01/24 01:42)
Hives
grouper fish Allergy (Uncoded 09/01/24 01:42)
Anaphylaxis
trivia and stevia sweetners Allergy (Uncoded 09/01/24 01:42)
Hives
Vital Signs and Labs
-
Vital Signs and Labs:
Vital Signs
Temp Pulse Resp BP Pulse Ox
36.4 C 76 18 109/70 98
09/02/24 10:20 09/02/24 11:00 09/02/24 10:20 09/02/24 10:17 09/02/24 10:20
Lab Results
09/02/24 05:25
09/02/24 05:25
Sodium 138 mmol/L (135-145) 09/02/24 05:25
Potassium 4.2 mmol/L (3.5-5.1) 09/02/24 05:25
BUN 16 mg/dl (7-17) 09/02/24 05:25
Glucose 96 mg/dl (70-99) 09/02/24 05:25
Calcium 9.5 mg/dl (8.4-10.2) 09/02/24 05:25
LDL Cholesterol, Calc 73 mg/dl 09/01/24 05:45
Ur Buprenorphine Negative (Negative) 09/01/24 13:55
Medications
-
Medications:
Generic Name Dose Route Start Last Admin
Trade Name Freq PRN Reason Stop Dose Admin
Acetaminophen 650 mg 09/01/24 03:26 09/02/24 08:15
Acetaminophen 325 Mg Tablet PO 09/29/24 03:25 650 mg
Q4HPRN PRN Administration
Mild Pain / Temp > 101
Aspirin 81 mg 09/02/24 08:00 09/02/24 07:58
Aspirin 81 Mg Chewable Tablet PO 09/30/24 07:59 81 mg
DAILY ALEJANDRO Administration
Clopidogrel Bisulfate 75 mg 09/01/24 08:00 09/02/24 07:58
Clopidogrel 75 Mg Tablet PO 09/29/24 07:59 75 mg
DAILY ALEJANDRO Administration
Escitalopram Oxalate 15 mg 09/01/24 22:00 09/01/24 21:11
Escitalopram 10 Mg Tablet PO 09/29/24 21:59 15 mg
HS ALEJANDRO Administration
Ketorolac Tromethamine 10 mg 09/01/24 03:26 09/02/24 05:38
Ketorolac 15 Mg/Ml Injection IV 09/06/24 03:25 10 mg
Q6HPRN PRN Administration
Headache
Pantoprazole Sodium 40 mg 09/01/24 08:00 09/02/24 07:58
Pantoprazole 40 Mg Delayed Release Tablet PO 09/29/24 07:59 40 mg
DAILY ALEJANDRO Administration
Prochlorperazine Edisylate 10 mg 09/01/24 03:26 09/02/24 08:16
Prochlorperazine 10 Mg/2 Ml Vial IV 09/29/24 03:25 10 mg
Q6HPRN PRN Administration
Headache / Nausea
Propranolol HCl 80 mg 09/01/24 08:00 09/02/24 07:58
Propranolol Extended Release 80 Mg Capsule (24hr) PO 09/29/24 07:59 80 mg
DAILY ALEJANDRO Administration
Sodium Chloride 0 flush 09/01/24 04:00
Sodium Chloride 0.9% (Flush) Syringe IV 09/29/24 03:59
PER PROTOCOL ALEJANDRO
Home Medications
-
Home Medications
escitalopram oxalate 10 mg tablet 15 mg PO HS Mental Health/Anxiety 03/23/23
norethindrone 1 mg-ethinyl estradiol 10 mcg (24)-iron 10 mcg(2) tablet (Lo Loestrin Fe) 1 tab PO DAILY HORMONE 03/23/23
omeprazole 20 mg tablet,delayed release 20 mg PO DAILY GERD 03/23/23
propranolol 80 mg capsule,extended release 24 hr 80 mg PO DAILY Blood Pressure 03/23/23
vitamin E 1 tab PO DAILY Supplement 09/01/24
[2024-09-02] MEDS: LEXAPRO 15 MG PO (20:31)
[2024-09-02] MEDS: FLUSH (NSS) 2 FLUSH IV (20:32)
--- NOTE | 2024-09-02 22:51 | PTCARENOTE ---
Assumed care of pt from prev nsg shift; Pt AAOx3 w/no c/o CP or SOB. Pt does c/o posterior headache which she rates as a 5/10. PRN Tylenol & IV Compazine administered as ordered. Pt w/VSS w/HR in the 60's & BP elevated at 153/66 this evening. Pt is
SR on telemetry monitoring. Pt's NIHSS remains a 0, w/pt c/o visual disturbances in bilat eyes, unchanged from prev assessment. Pt describes as 'pixilated vision'. Pt w/call buck within reach & plan of care ongoing.
[2024-09-03 03:55] VITALS: BP 147/85
[2024-09-03 04:31] LABS: Hematocrit 34.8 % (37.0-47.0); Hemoglobin 12.2 g/dL (12.0-16.0); Mean Corp Hgb Conc. 35.1 g/dL (33.0-37.0); Mean Corpuscular Hgb 32.6 pg (27.0-31.0); Mean Platelet Volume 9.8 fL (7.4-10.4); Platelet Count 199 10^3/uL (130-400); Red Blood Cell Count 3.74 10^6/uL (4.20-5.40); Red Cell Dist. Width 12.5 % (11.5-14.5)
[2024-09-03 04:50] LABS: Blood Urea Nitrogen 21 mg/dl (7-17); Calcium 9.8 mg/dl (8.4-10.2); Carbon Dioxide 27 mmol/L (22-30); Chloride 104 mmol/L (98-107); Estimated Creatinine Clearance 91 ml/min; Glucose 101 mg/dl (70-99); Magnesium 1.9 mg/dl (1.6-2.3); Sodium 139 mmol/L (135-145); eGFR > 60.00
[2024-09-03 07:25] VITALS: BP 138/84
--- NOTE | 2024-09-03 07:31 | W.PN.CARDCBS ---
Addendum entered and electronically signed by Jesus Donovan DO 09/03/24 08:54:
I saw and examined the patient.
The Healthcare Customer Service's note was reviewed and I agree with the note.
Comment:
Patient seen and examined. Patient resting comfortably in chair. Patient noting mild dull headache, mild lightheadedness, and continued mild blurry vision. Patient denies any flashing lights or other visual changes. Patient denies any chest
pain, shortness of breath, palpitations, dizziness, near-syncope, syncope, PND orthopnea, edema, or weakness. Of note, in discussion with patient, she reported that the flashing lights that she experienced most recently were like a brain on and off
flashing sensation in her araujo of vision which was different than her typical auras associated with migraine. Patient denies any aphasia or difficulty with speech or movement.
GENERAL: no acute distress
EYE: sclera anicteric
NECK: Supple, no JVD, no carotid bruit appreciated
ENT: normal nose, moist mucosal membranes
CARDIAC: Regular rate and rhythm, +S1/S2, no murmur, rubs, or gallops
CHEST/PULMONARY: Normal effort, clear breath sounds
ABDOMEN: Soft, without focal tenderness or distention
NEUROLOGICAL: Alert and oriented x3
SKIN: Warm and dry, no rash
PSYCH: Normal and appropriate interaction.
Telemetry shows sinus bradycardia/sinus rhythm without ectopy or sustained arrhythmia
A/P as below
MAKAYLA to be performed today followed by ILR implant
Regarding ILR implant, the risks and benefits of the procedure were explained to the patient in full, and in simple terms. Alternative therapy options were given, including no procedure. The risks of the procedure include, but are not limited to:
pain, bleeding, 0.7% risk of ILR erosion requiring device removal, 0.4% risk for device migration requiring removal or repositioning, 0.7% risk of infection requiring removal, perforation of vessels or heart, pericardial effusion, unstable heart
rhythm, and . The risks of blood transfusion were discussed, and include fever, transfusion reaction, and infection. All questions were answered, and the patient voices understanding.
Aspirin, Plavix, Lipitor per neurology, appreciate their input and guidance; may benefit from neuro-ophthalmology
Original Note:
Today's Communication / Plan
-
MAKAYLA, possible Linq today.
Continue aspirin, plavix, lipitor per neuro
Follow up arranged
Impression / Plan
-
PCP: Dr. Pires
Transportation Analyst: None prior to admission, initially seen by Dr. Harrison
Impression:
Cryptogenic stroke
Visual changes
Headache
h/o chronic migraine
Hypertension
History of anxiety disorder
History of GERD
Echo 09/03/2024: Study pending
MAKAYLA 09/03/2024: Study pending
Plan:
-Presented with visual changes and headache. Admitted with cryptogenic stroke, possibly embolic.
-Continue aspirin and Plavix per neurology recommendations.
-Echo pending. NPO for MAKAYLA today to assess for cardioembolic source of CVA.
-No afib on telemetry noted. Plan is for possible Linq implant later today.
-Continue lipitor 40mg daily. LDL 73.
-BP and HR stable, continue propranolol 80mg daily.
-Hgb A1c 4.9%.
-Will arrange follow up.
HPI: 54-year-old female who presents with acute onset visual changes and headache. She does carry history of chronic migraine and complicated migraine with visual aura. She is noted to have acute embolic infarcts on MRI of the brain although
thankfully she has noticed an improvement in her headache symptoms and overall neurologic picture except for difficulty with vision. No chest pain or palpitations. She does have a mother with a history of atrial fibrillation. ECG demonstrates
sinus rhythm and there is been no arrhythmia noted on telemetry.
Progress Note - Transportation Analyst
Subjective
Date of Service: September 03, 2024
Feeling well. Vision still somewhat off. Mild, dull headache this AM.
Objective
Labs:
09/03/24 04:00
09/03/24 04:00
Labs
Hgb 12.2 g/dL (12.0-16.0) 09/03/24 04:00
Hct 34.8 % (37.0-47.0) L 09/03/24 04:00
Plt Count 199 10^3/uL (130-400) 09/03/24 04:00
Sodium 139 mmol/L (135-145) 09/03/24 04:00
Potassium 4.0 mmol/L (3.5-5.1) 09/03/24 04:00
BUN 21 mg/dl (7-17) H 09/03/24 04:00
Creatinine 0.7 mg/dL (0.6-1.0) 09/03/24 04:00
Glucose 101 mg/dl (70-99) H 09/03/24 04:00
Vital Signs and I&O:
Vital Signs
Temp Pulse Resp BP Pulse Ox
98.3 F 65 20 147/85 98
09/03/24 04:02 09/03/24 06:00 09/03/24 04:02 09/03/24 03:55 09/03/24 04:02
Vital Signs
Temp Pulse Resp BP Pulse Ox
98.3 F 65 20 147/85 98
09/03/24 04:02 09/03/24 06:00 09/03/24 04:02 09/03/24 03:55 09/03/24 04:02
Intake & Output
09/01/24 09/02/24 09/03/24 09/04/24
06:59 06:59 06:59 06:59
Intake Total 480 / 480 960 / 960
Balance 480 / 480 960 / 960
Physical Exam
Physical Exam
GEN: No distress, awake, alert, oriented x3
HEENT: supple, anicteric, mmm
LUNGS: CTA b/l, no wheezes/rales
CV: Reg, S1/S2, no murmur
EXT: No clubbing, cyanosis, or edema
NEURO: Gross non-focal
SKIN: Warm, dry, no rash
--- NOTE | 2024-09-03 08:22 | PTCARENOTE ---
Received patient this morning oob ambulating in her room. Still has mild frontal head discomfort rated 2/10 but slept very well this AM. Would like to shower, tt to the hospitalist that would prefer this wait until after her MAKAYLA/echo, loop recorder.
[2024-09-03] MEDS: INDERAL LA 80 MG PO (09:01)
[2024-09-03] MEDS: PROTONIX 40 MG PO (09:02)
[2024-09-03] MEDS: FLUSH (NSS) 1 FLUSH IV (09:02)
[2024-09-03] MEDS: PLAVIX 75 MG PO (09:02)
[2024-09-03] MEDS: LOW STRENGTH ASPIRIN 81 MG PO (09:02)
--- NOTE | 2024-09-03 09:03 | W.PN.HOSP.TC ---
Today's Communication/Plan
-
Discharge today
Assessment / Plan
Assessment / Plan
Physical Exam
General: No Apparent Distress
HEENT: Normocephalic. Atraumatic.
Respiratory: Clear to Auscultation Bilaterally
Cardiac: Regular Rhythm and S1/S2
GI: Soft and Nontender. Positive bowel sounds.
Musculoskeletal: No Edema. No cyanosis.
Skin: Warm and Dry
Neuro: AO x 3. Nonfocal/grossly intact.
Psych: Calm
Assessment/Plan
Ms. Sheila Trevino is a 54 yo woman with hx migraines who presents to the ER complaining of headache and vision changes.
HEAD CT
IMPRESSION:
Multiple new hypoattenuating foci described above, which could represent acute or subacute ischemia. An alternative consideration would be vasogenic edema from underlying intraparenchymal lesions. A follow-up brain MRI without and with intravenous
contrast may be helpful for further characterization.
Brain MRI
IMPRESSION:
Multiple scattered acute infarcts located in the bilateral parietal and occipital lobes, the left cerebellum, and the left thalamus.
CTA Head/Neck
IMPRESSION:
No acute intracranial hemorrhage.
The cervical carotid and vertebral arteries are patent without significant plaque, stenosis, occlusion, or dissection.
The left intradural vertebral artery is dominant. The right intradural vertebral artery demonstrates developmental diminished caliber beyond the posterior inferior cerebellar artery origin. Both posterior inferior cerebellar arteries appear patent.
No [place] of [place] region aneurysm or stenosis.
No cerebral artery significant plaque, stenosis, thrombus, or occlusion.
Thyroid nodularity, with right lobe enhancing heterogeneous nodule measuring up to 1.5 cm. Recommend nonemergent follow-up thyroid ultrasound.
CVA
Acute hemispheric posterior circulation strokes -- likely embolic
Visual Changes
- CT done in the ED showed several areas of small infarct in the left occipital, parietal, basal ganglia and cerebellum.
- s/p MRI confirming acute infarcts
- Monitor on telemetry -- no A-Fib on telemetry
- continue aspirin/plavix/Lipitor 10 mg per neurology (I confirmed on 09/03/24 with neurology that Lipitor is supposed to be 10 mg daily, not 40 mg daily, and that Plavix is supposed to be 75 mg daily for total of 21 days)
- appreciate Neurology
- TTE performed on 09/03/24 -- no PFO or any cardioembolic source of stroke; Cardiology consult for TTE and Linq
- September 03, 2024: patient had successful placement of a loop recorder -- follow-up will be arranged in the [facility] in 7-10 days for wound check
- Routine ILR care
- May benefit from outpatient neuro-ophthalmology; will place outpatient ophthalmology referral
- Follow-up thrombophilia lab-work outpatient
Thyroid nodule on CT
-thyroid US ordered showing nodules
-TSH WNL
-Follow-up outpatient
Dr. Calderon discussed with patient to stop hormone replacement therapy
Headache
h/o chronic migraine
Hypertension
History of anxiety disorder -- continue Propranolol 80mg daily
History of GERD
DVT Prophylaxis: SCDs
Code Status: Full Code
More than 30 minutes spent in discharge including
Final examination of the patient
Summarizing hospital stay
Instructions for continuing care to all relevant caregivers
Preparation of discharge records, prescriptions, and referral forms
Total time spent (in minutes): 39
Anticipated Discharge: Today
Subjective/Interval History
-
Date of Service: September 03, 2024
Patient was seen and examined. She denied any symptoms or complaints, and expressed eagerness to go home today.
Objective Data
-
Labs:
Laboratory Results
09/03/24
04:00
WBC 6.0
Hgb 12.2
Hct 34.8 L
Plt Count 199
Sodium 139
Potassium 4.0
Chloride 104
Carbon Dioxide 27
BUN 21 H
Creatinine 0.7
Glucose 101 H
Calcium 9.8
Vital Signs:
Vital Signs
Temp Pulse Resp BP Pulse Ox
98.1 F 80 16 138/84 97
09/03/24 07:41 09/03/24 07:25 09/03/24 07:41 09/03/24 07:25 09/03/24 07:41
I&O
09/02/24 09/03/24 09/04/24
06:59 06:59 06:59
Intake Total 480 / 480 960 / 960
Balance 480 / 480 960 / 960
--- NOTE | 2024-09-03 11:11 | ITS.CL.IMPLP ---
Ingredient Scaler Helper - Implant Loop
Implant Loop
Procedure Report:
Primary Physician: Dr Pires
Procedure Date: 09/03/2024
Procedure: Placement of a loop recorder.
History/Indication:
1. See office H&P for complete history.
2. Patient is a pleasant 54-year-old female with a past medical history significant for hypertension, migraine, anxiety, GERD who presented with acute cryptogenic stroke. MAKAYLA unremarkable for identifiable cardioembolic source per Dr Campbell.
Patient undergo ILR implant due to cryptogenic stroke concerning for arrhythmia.
Method:
After informed consent was obtained, the patient was brought to the EP laboratory holding area in a fasting, non-sedated state. Peripheral access was established. The left chest was prepared and draped in a sterile fashion. A 'time out' was
called. Local anesthesia was injected in the subcutaneous tissue. The ILR was injected under the skin. Topical skin adhesive was applied. Following the procedure, the patient was taken to the recovery area in stable condition. No complications
were noted.
Device Data:
[employer]tronic; Model# [id number] Serial# [id number]
Conclusion:
Successful placement of a loop recorder.
Recommendations:
1. Follow-up will be arranged in the [facility] in 7-10 days for wound check.
2. Routine ILR care.
Jesus Donovan, , [facility], [facility]
Clinical Cardiac Airport Operations Manager
cc: Dr Pires
--- NOTE | 2024-09-03 11:41 | CM ---
spoke to pt in room, she is prev indep, lives with her husb in a 2 story home with 2 steps to enter. she denies any dc planning needs or dme's. plan is for dc to home when medically stable.
[2024-09-03 12:01] LABS: Lyme Antibody Screen, EIA Negative (Negative)
[2024-09-03 12:11] VITALS: BP 125/76
--- NOTE | 2024-09-03 12:19 | PTCARENOTE ---
Patient returned from MAKAYLA/linq implant AAO, VSS. 2x2 Dressing at left 4th intercostal space is dry and intact. Dr. Kelly in to see the patient, she is anxious to go home. at the bedside, patient drinking some tea, oob and ambulating in
the halls now.
[2024-09-03] MEDS: TYLENOL 650 MG PO (12:52)
--- NOTE | 2024-09-03 14:25 | W.PN.NEURO.1 ---
Today's Communication / Plan
-
.
Subjective/Objective
Subjective Data
Date of Service: September 03, 2024
MAKAYLA-Normal interatrial septum with no evidence of shunt by color-flow Doppler or bubble study (at rest and with Valsalva).
Objective Data
Vital Signs
Temp Pulse Resp BP Pulse Ox
36.6 C 77 16 125/76 98
09/03/24 12:18 09/03/24 12:11 09/03/24 12:18 09/03/24 12:11 09/03/24 12:18
Lab Results
09/03/24 04:00
09/03/24 04:00
Sodium 139 mmol/L (135-145) 09/03/24 04:00
Potassium 4.0 mmol/L (3.5-5.1) 09/03/24 04:00
BUN 21 mg/dl (7-17) H 09/03/24 04:00
Glucose 101 mg/dl (70-99) H 09/03/24 04:00
Calcium 9.8 mg/dl (8.4-10.2) 09/03/24 04:00
LDL Cholesterol, Calc 73 mg/dl 09/01/24 05:45
Ur Buprenorphine Negative (Negative) 09/01/24 13:55
Patient Allergies
fish derived Allergy (Verified 09/01/24 01:42)
Anaphylaxis
guaifenesin [Guaifenesin] Allergy (Verified 09/01/24 01:42)
Hives
grouper fish Allergy (Uncoded 09/01/24 01:42)
Anaphylaxis
trivia and stevia sweetners Allergy (Uncoded 09/01/24 01:42)
Hives
--- NOTE | 2024-09-03 14:57 | PN.CDI ---
CDI
- -
CDI:
Physician Documentation Request
Admit Date: 09/01/24 02:32
Dear Doctor,
Please review the following and provide your response in the progress notes.
Clinical Indicators:
The diagnosis of vasogenic edema was included in the signed MRI 09/01.
Additional clinical indicators in the chart include:
Pt admitted with CVA likely embolic in nature
Brain MRI- 'Multiple foci of restricted diffusion involving the bilateral parietal and occipital lobes (left greater than right), the left cerebellum, and the left thalamus compatible with acute infarcts. T2/FLAIR hyperintense signal at these
locations indicating cytotoxic edema.'
Please indicate in your progress notes if you are in agreement that the above diagnosis is valid for this patient:
____ - Cytotoxic Edema is a valid diagnosis (Please include it in your progress notes)
____ - Cytotoxic Edema is not a valid diagnosis for this patient
____ - Other ( please specify)
Use of terms such as suspected, likely, concern for, or probable are acceptable for a diagnosis that is being evaluated, monitored or treated as if it exists and can be coded in the inpatient setting, when documented at the time of discharge.
Thank you,
Kathryn Cates RN
CDI Specialist
[place] [facility]
Please use your independent medical judgment in providing your response.
[2024-09-03 16:26] VITALS: BP 129/79
--- NOTE | 2024-09-03 17:30 | PTCARENOTE ---
Patient ambulating in the halls with her all afternoon. Dressing at linq site is dry and intact, neuro status stable. Patient discharged home with her , is aware of medications, driving restrictions and follow up appointments.
[2024-09-04 01:32] LABS: Beta-2-Glycoprotein I Ab. IgA <10 SAU (<=20); Beta-2-Glycoprotein I Ab. IgG <10 SGU (<=20); Beta-2-Glycoprotein I Ab. IgM <10 SMU (<=20)
[2024-09-04 12:17] LABS: Protein S Total Antigen 102 % (63-126)
[2024-09-04 14:51] LABS: Anti-Thrombin III Activity 113 % (76-128)
[2024-09-04 16:56] LABS: ANA, IgG Reflex to HEp-2 None Detected (None Detected)
[2024-09-04 18:35] LABS: Cardiolipin IgA Antibody <10 APL (<=11); Cardiolipin IgM Antibody <10 MPL (<=12); Cardiolipin Igg Antibody <10 GPL (<=14)
== END 2024-09-03 17:28 | disposition home or self-care (01) | DRG 40 ==
LOC: IVU 02:32
PROVIDERS: Internal Medicine Cardiovascular Disease; Student in an Organized Health Care Education/Training Program; ADMITTING PHYSICIAN Hospitalist; ATTENDING PHYSICIAN Hospitalist; CONSULT PHYSICIAN Internal Medicine Cardiovascular Disease; CONSULT PHYSICIAN Psychiatry & Neurology Neurology; EMERGENCY PHYSICIAN Emergency Medicine; FAMILY PHYSICIAN Internal Medicine
PROC: B24CZZ4 Ultrasonography of Pericardium, Transesophageal (ICD-10-PCS; 2024-09-03)
PROC: 0JH632Z Insertion of Monitoring Device into Chest Subcutaneous Tissue and Fascia, Percutaneous Approach (ICD-10-PCS; 2024-09-03)
PROC: B24BZZ4 Ultrasonography of Heart with Aorta, Transesophageal (ICD-10-PCS; 2024-09-03)
DX: I63.40 Cerebral infarction due to embolism of unspecified cerebral artery (principal); G93.6 Cerebral edema; K21.9 Gastro-esophageal reflux disease without esophagitis; I10 Essential (primary) hypertension; G43.109 Migraine with aura, not intractable, without status migrainosus; F41.9 Anxiety disorder, unspecified; E04.1 Nontoxic single thyroid nodule; Z87.891 Personal history of nicotine dependence; Z82.49 Family history of ischemic heart disease and other diseases of the circulatory system; Z79.899 Other long term (current) drug therapy
CPT/HCPCS: 33285; 70450; 70496; 70498; 70553; 76536; 80048; 80061; 80306; 83036; 83735; 84443; 85027; 85300; 85305; 85652; 86038; 86140; 86146; 86147; 86148; 86618; 87389; 92610; 93005; 93312; 93320; 93325; 96361; 96374; 96375; 97112; 97163; 99285; A9575; C1764; Q9967

== ENCOUNTER → 2025-04-05 14:46 | Outpatient (REF) | payer OTHER, SELFPAY | LOC: PAVMRI 14:46 | PROVIDERS: ATTENDING PHYSICIAN Specialist | DX: I63.9 Cerebral infarction, unspecified (principal) | CPT/HCPCS: 70553; A9575 ==